=== PATIENT | male | born 1970 | race African-American/Black ===

== ENCOUNTER 2017-10-04 16:59 | Emergency (ER) | payer MEDICARE, MEDICAID ==
[~2017-10-04] VITALS: Ht 198.1 cm; Wt 83.6 kg
[2017-10-04 17:07] VITALS: BP 133/90
[2017-10-04] MEDS ORDERED: IBUPROFEN 800 MG TABLET PO STA (17:28)
[2017-10-04] MEDS ORDERED: ACETAMINOPHEN 500 MG TABLET PO ONE (17:30)
[2017-10-04] MEDS ORDERED: IBUPROFEN 800 MG TABLET ONE (18:09)
[2017-10-04] MEDS ORDERED: ACETAMINOPHEN 500 MG TABLET ONE (18:09)
== END 2017-10-04 18:54 | disposition home or self-care (01) ==
LOC: ED 18:40
DX: G43.001 Migraine without aura, not intractable, with status migrainosus (principal); J45.909 Unspecified asthma, uncomplicated
CPT/HCPCS: 99283

== ENCOUNTER 2018-02-22 09:48 | Emergency (ER) | payer MEDICARE, MEDICAID ==
[~2018-02-22] VITALS: Ht 198.1 cm; Wt 76.5 kg
[2018-02-22 09:54] VITALS: BP 124/99
[2018-02-22] MEDS ORDERED: LIDOCAINE-MPF 2%, 2ML ONE ×3 (10:05→10:08)
[2018-02-22] MEDS ORDERED: BACITRACIN ZINC OINT 500U/GM, 0.9 GM ONE (10:58)
== END 2018-02-22 11:07 | disposition home or self-care (01) ==
LOC: ED 11:00
DX: S61.012A Laceration without foreign body of left thumb without damage to nail, initial encounter (principal); I10 Essential (primary) hypertension; E11.9 Type 2 diabetes mellitus without complications; J45.909 Unspecified asthma, uncomplicated; W26.0XXA Contact with knife, initial encounter; Y93.89 Activity, other specified; Y99.8 Other external cause status; Y92.89 Other specified places as the place of occurrence of the external cause
CPT/HCPCS: 12001; 99283

== ENCOUNTER 2018-10-05 08:14 | Emergency (ER) | payer OTHER, MEDICAID ==
[~2018-10-05] VITALS: Ht 198.1 cm; Wt 76.6 kg
--- NOTE | 2018-10-05 08:53 | NUR ---
PT WC'D TO ROOM 39 W/ C/O MGLF TRIPPED AND NOW HAS NECK PAIN. STARTED 2 DAYS AGO. PT STATES HE HAD +LOC "FOR A MINUTE". PT ALSO C/O RAINES AT THIS TIME. PT RESTING ON GURNEY. NADN. NEURO INTACT. NECK BRACE IN PLACE. MICHELLE AHN AT BEDSIDE.
[2018-10-05] MEDS ORDERED: HYDROcodone/APAP 5/325 TABLET ONE (09:07)
[2018-10-05] MEDS ORDERED: HYDROcodone/APAP 5/325 TABLET PO ONE (09:30)
[2018-10-05 09:53] VITALS: BP 126/93
--- NOTE | 2018-10-05 09:53 | NUR ---
PT RESTING ON GURNEY. NADN. LOVE.
--- NOTE | 2018-10-05 10:48 | NUR ---
PT CHART REVIEWED AND PLACED FOR RECHECK.
== END 2018-10-05 11:29 | disposition home or self-care (01) ==
LOC: ED 09:22
DX: S16.1XXA Strain of muscle, fascia and tendon at neck level, initial encounter (principal); S00.93XA Contusion of unspecified part of head, initial encounter; E11.9 Type 2 diabetes mellitus without complications; I10 Essential (primary) hypertension; J45.909 Unspecified asthma, uncomplicated; W01.0XXA Fall on same level from slipping, tripping and stumbling without subsequent striking against object, initial encounter; Y93.89 Activity, other specified; Y92.830 Public park as the place of occurrence of the external cause; Y99.8 Other external cause status
CPT/HCPCS: 70450; 72125; 99284

== ENCOUNTER 2018-10-12 13:34 | Emergency (ER) | payer OTHER, MEDICAID ==
[~2018-10-12] VITALS: Ht 198.1 cm; Wt 84.0 kg
[2018-10-12 13:40] VITALS: BP 113/77
--- NOTE | 2018-10-12 14:06 | NUR ---
PT HERE FOR LOWER BACK PAIN. PT RESTING IN BED COMFORTABLY.
--- NOTE | 2018-10-12 15:06 | NUR ---
PT MEDICATED FOR PAIN.
[2018-10-12] MEDS ORDERED: ACETAMINOPHEN 500 MG TABLET ONE (16:10)
--- NOTE | 2018-10-12 16:18 | NUR ---
Patient/Caregiver given discharge instructions and they have confirmed that they understand the instructions. Patient ambulatory with steady gait.
[2018-10-12] MEDS ORDERED: ACETAMINOPHEN 500 MG TABLET PO ONE (16:30)
== END 2018-10-12 16:40 | disposition home or self-care (01) ==
LOC: ED 15:52
DX: S63.522A Sprain of radiocarpal joint of left wrist, initial encounter (principal); S63.521A Sprain of radiocarpal joint of right wrist, initial encounter; S00.83XA Contusion of other part of head, initial encounter; K02.9 Dental caries, unspecified; I10 Essential (primary) hypertension; E11.9 Type 2 diabetes mellitus without complications; G43.909 Migraine, unspecified, not intractable, without status migrainosus; J45.909 Unspecified asthma, uncomplicated; Z88.5 Allergy status to narcotic agent; W01.0XXA Fall on same level from slipping, tripping and stumbling without subsequent striking against object, initial encounter; Y93.89 Activity, other specified; Y92.89 Other specified places as the place of occurrence of the external cause; Y99.8 Other external cause status
CPT/HCPCS: 70486; 99284

== ENCOUNTER 2019-12-17 17:05 | Emergency (ER) | payer MEDICARE, MEDICAID ==
[~2019-12-17] VITALS: Ht 198.1 cm; Wt 78.3 kg
[2019-12-17 17:19] VITALS: BP 142/89
--- NOTE | 2019-12-17 17:22 | NUR ---
FIRST CONTACT WITH PT. PT STATES FACIAL SWELLING X2 DAYS, WORSE ON RIGHT. PT PROTECTING OWN AIRWAY WELL IN TRIAGE. PT STATED"I HAVE DENTAL PAIN WELL." PT DENIES ANY OTHER SX. PT'S AOX4. RESPS EVEN AND UNLABORED. BP/SPO2 MONITORS IN PLACE. CALL LIGHT WITHIN REACH. PA AT BEDSIDE TO EVALUATE AT THIS TIME.
--- NOTE | 2019-12-17 18:16 | NUR ---
Patient given discharge instructions and they have confirmed that they understand the instructions. Patient ambulatory with steady gait.
== END 2019-12-17 18:17 | disposition home or self-care (01) ==
LOC: ED 17:40
DX: K08.89 Other specified disorders of teeth and supporting structures (principal); I10 Essential (primary) hypertension
CPT/HCPCS: 99283

== ENCOUNTER 2021-03-17 08:36 | Emergency (ER) | payer MEDICARE, MEDICAID ==
[~2021-03-17] VITALS: Ht 198.1 cm; Wt 71.9 kg
[2021-03-17] MEDS ORDERED: CLINDAMYCIN PMX 900MG/50ML 50 ML ONE (09:36)
[2021-03-17] MEDS ORDERED: LIDOCAINE-MPF 1%, 5ML ONE ×2 (09:37→10:47)
--- NOTE | 2021-03-17 09:47 | NUR ---
Lab completed BC x2 draw and IV started with abx started after that. Pt requesting APAP for pain.
--- NOTE | 2021-03-17 09:53 | NUR ---
NIKKIE notified of need for APAP reqeust.
[2021-03-17] MEDS ORDERED: LIDOCAINE-MPF 1%, 5ML INFIL ONE ×2 (10:00→11:00)
[2021-03-17] MEDS ORDERED: CLINDAMYCIN PMX 900MG/50ML 50 ML IVPB ONE (10:00)
[2021-03-17] MEDS ORDERED: SODIUM CHLORIDE FLUSH 10ML SYR IVF ONE (10:00)
[2021-03-17 10:03] LABS: MEAN CORPUSCULAR HEMOGLOBIN 29.5 pg (27.5-34.5); MEAN CORPUSCULAR HGB CONC 34.1 g/dL (33.2-36.2); MEAN PLATELET VOLUME 7.2 fL (7.4-10.4); PLATELET COUNT 424 x10^3/uL (130-400); RED BLOOD COUNT 3.76 x10^6/uL (4.38-5.82); RED CELL DISTRIBUTION WIDTH 14.5 % (9.4-14.8)
[2021-03-17 10:08] LABS: ALANINE AMINOTRANSFERASE 17 U/L (12-78); ALBUMIN 3.2 g/dL (3.4-5.0); ANION GAP 6 mmol/L (5-15); CALCIUM 8.5 mg/dL (8.5-10.1); CHLORIDE 103 mmol/L (98-107); CREATININE 0.78 mg/dL (0.7-1.3)
[2021-03-17 10:10] LABS: ALKALINE PHOSPHATASE 105 U/L (45-117); BILIRUBIN,TOTAL 0.3 mg/dL (0.2-1.0); TOTAL PROTEIN 7.9 g/dL (6.4-8.2)
--- NOTE | 2021-03-17 10:25 | NUR ---
PA at bedside for I&D now. Lidocaine at bedside with start of Clindamycin IV gtt.
[2021-03-17 10:36] LABS: EOS#(MANUAL) 2.21 x10^3/uL (0.0-0.4); EOS% (MANUAL) 10 % (1-7); LYMPH#(MANUAL) 3.09 x10^3/uL (1-3.4); LYMPHS% (MANUAL) 14 % (22-44); MONOS#(MANUAL) 0.44 x10^3/uL (0.3-2.7); MONOS% (MANUAL) 2 % (2-9); MYELOCYTES# (MANUAL) 0.22 x10^3/uL (0-0); MYELOCYTES% (MANUAL) 1 % (0-0); SEG#(MANUAL) 16.13 x10^3/uL (1.8-6.8); SEGS% (MANUAL) 73 % (42-75)
[2021-03-17 10:37] LABS: <PLATELET ESTIMATE> INCREASED; <PLT MORPHOLOGY> NORMAL PLT MORPH; <RBC MORPHOLOGY> NORMAL
[2021-03-17 11:21] VITALS: BP 109/75
== END 2021-03-17 09:00 | disposition left against medical advice (07) ==
LOC: ED 08:54
DX: L02.511 Cutaneous abscess of right hand (principal); D72.828 Other elevated white blood cell count; I10 Essential (primary) hypertension; E11.9 Type 2 diabetes mellitus without complications
CPT/HCPCS: 26010; 36415; 80053; 83605; 85025; 87040; 96365